=== PATIENT | female | born 1965 | race Caucasian/White ===

== ENCOUNTER 2019-09-03 14:34 | Emergency (ER) | payer OTHER ==
[~2019-09-03] VITALS: Ht 170.2 cm; Wt 111.1 kg
--- OUTSIDE RECORDS SUMMARY | 2019-09-03 14:36 | XMS REPORT | Summary of Care ---
Author Author [facility] Organization [facility] Address Unknown Phone Unavailable Care Team Providers Care Parts Identification Technician Name Role Phone Janine De La Cruz MD PCP Reason for Referral * Consult, Test & Treat (Routine) Referred By Contact Referred To Contact Status Reason Specialty Diagnoses / Procedures Janine De La Cruz MD [address] [address] [address] [place] [address] [id number] [place] [address] Pending Consult, Test, and Dermatology Diagnoses Treat Skin lesion of hand P rocedures MS OFFICE OUTPATIENT NEW 30 MINUTES * Radiology Services (Routine) Referred By Contact Referred To Contact Status Reason Specialty Diagnoses / Procedures Janine De La Cruz MD [address] [address] [facility] Mammo Imaging [address] [facility] [address] [place] [address] Pending Radiology Diagnoses Visit for screening mammogram P rocedures MAMMO SCREENING BILATERAL * Test (Routine) Referred By Contact Referred To Contact Status Reason Specialty Diagnoses / Procedures Janine De La Cruz MD [address] [address] [place] [facility] [address] [facility] 8th Floor, [address] [place] [address] Pending Gastroenterology Diagnoses Screen for colon cancer P rocedures OPEN ACCESS COLONOSCOPY MS COLONOSCOPY W/BIOPSY SINGLE/MULTIPLE Reason for Visit * Reason Comments Joint Swelling joint pain and low enegry Encounter Details Care Team Description Date Type [place] [address] [place] [address] [address] [place] [address] Joint Swelling (joint pain and low enegry) 02/07/2019 Office Visit [facility] Family Medicine [facility] [address], [facility] [address] [place] [address] Allergies Comments Active Allergy Reactions Severity Noted Date Penicillins 04/25/2012 documented as of this encounter (statuses as of 02/09/2019) Medications End Date Status Medication Sig Dispensed Refills Start Date Active atorvastatin (LIPITOR) 10 Take 1 Tab by 90 Tab 3 MG tabletIndications: mouth daily. 7 ASCVD (arteriosclerotic For cardiovascular disease), cholesterol Hyperlipidemia, unspecified hyperlipidemia type Active lisinopril (PRINIVIL, Take 1 Tab by 90 Tab 3 ZESTRIL) 5 MG mouth daily. 7 tabletIndications: HTN, For blood goal below 140/90 pressure Active Na Sulfate-K Sulfate-Mg Use as 2 Bottle 1 Sulf (SUPREP BOWEL PREP directed 9 KIT) 17.5-3.13-1.6 GM/177ML SOLNIndications: Screen for colon cancer Active hydrochlorothiazide Take 1 Cap by 30 Cap 0 (MICROZIDE) 12.5 MG mouth every 9 capsuleIndications: HTN, morning. For goal to be determined swelling and blood pressure 02/07/2019 Discontinued varenicline (CHANTIX Take 1 Tab by 60 Tab 0 CONTINUING MONTH ROB) 1 mouth two 5 MG tabletIndications: times daily. Smokes and motivated to Please quit, Tobacco use schedule disorder appointment for follow up and further refill 02/07/2019 Discontinued Na Sulfate-K Sulfate-Mg Use as 2 Bottle 1 Sulf (SUPREP BOWEL PREP) directed 7 SOLNIndications: Preventative health care, Screen for colon cancer 02/07/2019 Discontinued hydrochlorothiazide Take 1 Cap by 90 Cap 3 (MICROZIDE) 12.5 MG mouth every 7 capsule morning. For swelling and blood pressure documented as of this encounter (statuses as of 02/09/2019) Active Problems Problem Noted Date HTN, goal below 140/90 11/16/2016 Dyslipidemia 11/01/2016 Overview: 10/2016=3.4% (quit smoking) Elevated platelet count 11/01/2016 Leukocytosis 11/01/2016 Prediabetes 05/01/2015 Angina pectoris 04/25/2012 Tobacco use disorder 04/25/2012 Overview: 04/08: Counseled on tobacco cessation, not ready to quit at this time, agrees to think about a quit date Obesity (BMI 30-39.9) 04/25/2012 Overview: 04/08: Ant discussion with patient regarding the importance of weight loss. Recommend consult with nutrition and/or joining weight watchers or alternate dietary program. Recommend starting a formal exercise program with ultimate goal of 200 minutes of aerobic activity/week. Will recommend walking 15 minutes daily for minimum of 3 days/week to start and increase intensity and frequency as tolerated. Will continue to monitor progress. documented as of this encounter (statuses as of 02/09/2019) Immunizations Name Administration Dates Next Due Influenza Quad-PF 05/08/2015 Pneumococcal 05/08/2015 Polysaccharide documented as of this encounter Social History Date Tobacco Use Types Packs/Day Years Used Quit: 06/28/2016 Former Smoker 1 30 Smokeless Tobacco: Never Used Drinks/Week oz/Week Comments Alcohol Use 7-14 Standard drinks or equivalent 4.2 - 8.4 Yes Sex Assigned at Date Recorded Not on file Industry Job Start Date Occupation Not on file Not on file Not on file Travel End Travel History Travel Start No recent travel history available. documented as of this encounter Last Filed Vital Signs Reading Time Taken Comments Vital Sign 144/84 02/07/2019 1:11 PM CDT Blood Pressure 78 02/07/2019 1:11 PM CDT Pulse 36.2 C (97.2 F) 02/07/2019 1:06 PM CDT Temperature 16 02/07/2019 1:06 PM CDT Respiratory Rate - - Oxygen Saturation - - Inhaled Oxygen Concentration 114 kg (251 lb 6.4 oz) 02/07/2019 1:06 PM CDT Weight 170.2 cm (5' 7") 02/07/2019 1:06 PM CDT Height 39.37 02/07/2019 1:06 PM CDT Body Mass Index documented in this encounter Patient Instructions * Patient Instructions* Janine De La Cruz MD - 02/07/2019 1:10 PM CDT Please review the labs and/or tests ordered for you today. There may be a charge for tests not covered under your insurance plan and you may be responsible for the costs of the tests if they are not covered by your insurance. Please check w ith your insurance regarding coverage for tests Before getting them done. I have ordered fasting labs to be done. It may take up to 5 business days for e results to be ready and for me to review and release the results. I will release the results through [employer]. If you have not signed up for [employer] I will send a lab letter explaining your results. If something needs to be add ressed urgently you will receive a phone call. Take care, Janine De La Cruz MD, 1:38 PM 02/07/2019 You DO need to be fasting for this lab work. If fasting is required, do not eat anything for 10-12 hours. Water or black coffee is ok when fasting. No appointment is needed. You can just walk in. Two available locations: [facility] [address] Lab hours: /: 7:30 am - 4:15 pm, Wednesdays: 8:00 am - 4:15 pm [facility] [address] [place] [address] Lab hours: - 8:00 am - 5:30 pm Colonoscopy Instructions Please call [phone] to schedule your procedure and have this List with you. Day Date ArrivalTime Procedure Time Locations [facility] [address] [facility] 4th Floor [facility] [address] [facility] [address] [place] [address] [facility] [address] [facility] - 1st [place] [address] [facility] [address]th [place] [address] Important Phone Numbers Before calling, please see the Frequently Asked David montoya below. [facility] Insurance questions: [phone] [facility] Insurance questions: [phone], option 5 For prep information: [phone] To reschedule/cancel your procedure: [phone] After hour questions, including prep related: [phone] Elia Schneider COLONOSCOPY TO DO LIST HOLD Anticoagulants and Antiplatelet Medications To reduce risk of bleeding, 'blood thinning' medications need to be held for the upcoming procedure. Look for your prescription below and hold for the recommen ded number of days. Please check with your doctor BEFORE stopping any medications Note: You may continue to take baby aspirin (81mg) until the day of your procedu re Manage through you doctor or anticoagulation clinic Warfarin (Coumadin) Enoxaparin (Lovenox) STOP 7 days BEFORE the procedure Aspirin Aspirin/Dipyridamole (Aggrenox) Clopidogrel (Plavix) Pasugrel (Effient) Ticlopidine (Ticlid) Ticagrelor (Brilinta) STOP 3 days BEFORE the procedure Apixaban (Eliquis) Dabigatran (Pradaxa) Rivaroaxaban (Xarelto) STOP 2 days BEFORE the procedure Fondaparinux (Arixtra) Cilostazol (Pletal) 7 DAYS BEFORE THE PROCEDURE ? If your provider has instructed, obtain cardiac clearance from your cardiologi st and confirm that clearance has been faxed to our office ( ). ? If your provider has instructed, please stop use of medications that can thin your blood - see above ? Sign up for [facility] MyChart All results including biopsy and / or polyp(s) removed will be communicated via MyChart. ? superintendent drilling and production your bowel cleansing preparation from your pharmacy. ? Arrange transportation for the day of your procedure an escort is needed a s you will be sedated for the exam. THE DAY BEFORE THE PROCEDURE ? Please ignore the gnore the instructions provided with your bowel preparation ? Follow the steps in the Bowel Prep Instruction section below for your prescrib ed prep. ? You are restricted to ONLY CLEAR LIQUIDS. No solid foods or food with seeds/nu ts. No dairy and no liquids that are red, orange, or purple in color. This inclu thee breakfast. ? Examples of acceptable foods / liquids are plain broth, jello, popsicles, tea, clear juices and carbonated drinks. No vegetable soup. THE DAY OF THE PROCEDURE ? You cannot consume any food or drink (including water) ? You may brush your teeth and rinse your mouth. ? Take all medications as directed by your doctor with a small sip of water. ? Bring your identification card, insurance card, and method of payment. ? Leave all other valuables at home. ? You CANNOT drive yourself from the procedure. Use of bus, taxi or Uber without an escort is not allowed for safety reasons. ? Arrive for check-in at least 90 minutes before your procedure time. Allow panchito tional time for parking and navigation to the procedure location. BOWEL PREP INSTRUCTIONS Follow the instructions below for the bowel prep you were prescribed. Do NOT fo llow the instructions on the prep packaging. Please call [phone] if you best ve any questions about either prep. SUPREP THE DAY BEFORE YOUR PROCEDURE AT 6:00PM ? Pour ONE 6 ounce bottle of Suprep liquid into the 16 ounce mixing container in the kit ? Add cool drinking water to the 16 ounce line on the container with the mix. St ir. ? Drink all the liquid in the container ? You must drink TWO more 16 ounce containers (total of 32 ounces) of water over the next hour FOUR HOURS BEFORE YOU LEAVE YOUR HOME FOR THE PROCEDURE ? Pour ONE 6 ounce bottle of Suprep liquid into the 16 ounce mixing container in the kit ? Add cool drinking water to the 16 ounce line on the container with the mix. St ir. ? Drink all the liquid in the container ? You must drink TWO more 16 ounce containers (total of 32 ounces) of water over the next hour GOLYTELY THE DAY BEFORE YOUR PROCEDURE AT 6:00PM ? Add cold water to fill the gallon container. You may flavor the gallon with cr ystal light as long as it is not red/purple in color. ? Drink of the gallon (2 liters) over 2 hours. ? Drink the remaining half gallon (2 liters) over 90 minutes. FOUR HOURS BEFORE YOU LEAVE YOUR HOME FOR THE PROCEDURE ? Drink the remaining half gallon (2 liters) over 90 minutes. Colonoscopy Frequently Asked Questions What is a colonoscopy? A colonoscopy is a procedure that involves introducing a thin flexible tube with a camera to evaluate the colon for abnormalities. A Colonoscopy is considered the best option to screen for colon cancer and to re move colon polyps. A Colonoscopy is performed under sedation. How do I schedule a colonoscopy? Please call [phone] to schedule your procedure. Please be sure to check bef orehand with your designated catshovel driver (use of taxis, uber, lyft, etc are not permi tted) for possible dates. How much will the colonoscopy cost met? You will receive a call from the insurance department of [facility] AND [facility] ([facility]) in 10 to 14 business days AFTER you schedule your colonoscopy if your paymen t is above $100. What can I eat the day before the colonoscopy? The entire day before the procedure (including breakfast), you are restricted to clear liquids. This means nothing that has any solid residue. Liquids that are acceptable are water, plain/strained broth, jello, popsicles, and clear carbonat ed drinks. Avoid any liquids that are red/orange in color. Milk products are not allowed. P lease do NOT eat any vegetables, seeds, and nuts as these will cause poor visual ization of the colon. Preparation is a critically important part of the exam. If your bowel is not georgette quately cleaned out before the exam, your doctor will not be able to identify po lyps and may request a repeat examination. Tips for drinking the bowel preparation Refrigerating the mixed liquid bowel preparation may help you ingest easier. Do not force yourself to drink all the fluid at once. Pace yourself. Try hard/tart candies or lemon to help with the taste. What if I experience nausea or vomit the bowel preparation? Nausea is common, do not panic if this occurs. Stop drinking the solution for 45 to 60 minutes, and then resume. Pace yourself slower when drinking the bowel pr eparation. If vomiting continues for several hours please call your doctor. What should I wear for the day of the procedure? Please dress comfortably. You will be asked to change into a hospital gown and r emove all undergarments. What should I bring with me the day of the procedure? Please bring your identification card, insurance card, and method of payment. Pl ease do not bring any other valuables with you. [facility] (or [facility] facility where the procedure is performed) will NOT be responsible for your v aluable items. Can I take my medications the day of the procedure? You should take all your medications (except those listed as specified in the in structions) with small sips of water. Please refrain from drinking excessive flu id while taking your medications as this will place you at risk for anesthesia c omplications. How long will the process take? A typical procedure usually takes 30 to 45 minutes. However, there are many aspe cts to ensuring your health and safety. Time is needed for registration, intake assessment, changing, the procedure, and recovery. Please plan to be at the [facility] for at least 3-4 hours. What happens if a polyp is found in the colon? During the course of the colonoscopy, polyp(s) may be found. Polyps are abnormal growths of tissue, which vary in size. Although most polyps are benign (noncanc erous), a small percentage contain an area of cancer in them or may develop into cancer. They are usually removed during the procedure. Pathology results will be sent via [facility] [employer]. When will I receive results? You will receive a copy of the procedure report on the same day in your discharg e package. If biopsies were taken, they will be [facility] via [facility] 7 business days after your procedure. What symptoms might occur after the colonoscopy? Most patients do not experience any symptoms. Some may experience excessive gas, abdominal pain/cramping, and/or slight rectal bleeding after the procedure. The se symptoms usually resolve within a day with no need to be alarmed. If you expe rience excessive bleeding, fever, or severe symptoms please call the gastroenter ology office or report to the nearest emergency room for evaluation. What can I eat after the procedure? We suggest that the first meal be a light meal as you may have residual effects of anesthesia. However, there are no specific dietary exclusions unless you are instructed by your provider. What can I do after the procedure? Most procedures are done using anesthesia. You will not be allowed to drive afte r the procedure. It is not advised to make any important decisions the day of yo ur procedure. Please make sure you have someone to drive you home after the proc edure. The use of taxis, UBER, and Lyft are not permitted by our policies. Self- arranged medical transportation is acceptable. We recommend you plan on taking it easy for the remainder of the day. There are no restrictions the following day, including driving documented in this encounter Progress Notes * Janine De La Cruz MD - 02/07/2019 1:10 PM CDT Assessment/Plan 1. HTN, goal to be determined Restart HCTZ 12.5 mg qd pending labs - COMPREHENSIVE METABOLIC PANEL - hydrochlorothiazide (MICROZIDE) 12.5 MG capsule; Take 1 Cap by mouth every mor lalit. For swelling and blood pressure Dispense: 30 Cap; Refill: 0 2. Dyslipidemia curr off statin - LIPID PANEL 3. Elevated hemoglobin A1c - HEMOGLOBIN A1C - COMPREHENSIVE METABOLIC PANEL 4. Other fatigue - TSH REFLEX TO FREE T4 - CBC W/O DIFF W PLT - IRON, TIBC AND FERRITIN PANEL - VITAMIN B12 5. Skin lesion of hand - AMB REF TO [facility]ERMATOLOGY [facility] 6. Arthralgia of multiple sites - ANACHOICE(TM) SCREEN W REFLEX TO TITER, IFA - SEDIMENTATION RATE MODIFIED WESTERGREN - C-REACTIVE PROTEIN - CCP AB (IGG/IGA) - RHEUMATOID FACTOR 7. Low energy - VITAMIN B12 8. Tremor of left hand 9. Visit for screening mammogram - MAMMO SCREENING BILATERAL; Future 10. Screen for colon cancer - OPEN ACCESS COLONOSCOPY; Future - Na Sulfate-K Sulfate-Mg Sulf (SUPREP BOWEL PREP KIT) 17.5-3.13-1.6 GM/177ML SO LN; Use as directed Dispense: 2 Bottle; Refill: 1 Patient verbalized understanding. Discussed plan with patient, printed on the After Visit Summary, and given to her. Chief Complaint Patient presents with Joint Swelling joint pain and low enegry HPI Last visit with me 10/2016 Pt has been busy with work but also has had diff getting f/u appt here C/o being more tired, sleeping more Goes to bed at 8:30-9 PM and wakes up 6 AM Snores Wt gain 10 lbs in past year despite lifestyle changes Vitals 04/12/2014 04/26/2015 05/08/2015 10/29/2016 WEIGHT 237 243 253 HEIGHT 5' 7" 5' 7" 5' 7" 5' 7" BODY MASS INDEX 37.11 38.05 39.63 Vitals 11/12/2016 02/07/2019 WEIGHT 248 251.4 HEIGHT 5' 7" 5' 7" BODY MASS INDEX 38.84 39.37 Walking, more active Steps 9,000-10,000 steps/day x 1.5 mos Diet: portion control Uses calorie counter katelynn Down to 0612-9712 cals/day from 2300 cals/day Max 3000 cals/day before Cut back on fried and high carb foods Tried keto diet for several days for but had low energy and diff focus on work s o has gone to eating some meat but more complex carbs Just joined [employer] recently Plans to start swimming C/o joint pain with fatigue Hands, elbows, knees Achy pain off and on Some stiffness Better with movement, exercise No rash No urinary concerns No memory difficulties HTN HLD Off meds x1 yr ROS As per HPI Past Medical History/Past Social History/Family History I have reviewed the PMH, SH, FHX, ROS, MEDS, ALLERGIES and updated the computeri zed patient record appropriately. BP 144/84 | Pulse 78 | Temp 97.2 F (36.2 C) (Oral) | Resp 16 | Ht 5' 7" (1.702 m) | Wt 251 lb 6.4 oz (114 kg) | LMP 03/12/2009 | BMI 39.37 kg/m Gen: WD, WN. No acute distress, obese, well appearing Eyes: Conjunctivae clear. Anicteric. Throat: MMM Neck: Supple Lungs: Non labored breathing. CTAB. No w/r/r CVS: Regular rate and rhythm. Heart sounds wnl. No noted m/r/g Abd: soft, NT, ND, bowel sounds present Extrs: WWP. Trace b/l non pitting pedal edema No clubbing or cyanosis. Nl cap refill time Pulses: periph pulses 2+/= Skin: warm, dry, no rashes or bruises on cursory exam MSK: Normal gait Neuro: alert, oriented x3. Resting tremor, L hand noted. Psych: Normal affect, normal mood, normal judgement Janine De La Cruz MD [facility] documented in this encounter Plan of Treatment Care Team Description Date Type Specialty Janine De La Cruz MD [address] [place] [address] 02/21/2019 Office Visit Family Medicine Order Schedule Name Type Priority Associated Diagnoses Ordered: 02/07/2019 TSH REFLEX TO FREE T4 Lab Routine Other fatigue Ordered: 02/07/2019 CBC W/O DIFF W PLT Lab Routine Other fatigue Ordered: 02/07/2019 IRON, TIBC AND FERRITIN Lab Routine Other fatigue PANEL Ordered: 02/07/2019 HEMOGLOBIN A1C Lab Routine Elevated hemoglobin A1c Ordered: 02/07/2019 COMPREHENSIVE METABOLIC Lab Routine Elevated hemoglobin A1c PANEL HTN, goal to be determined Ordered: 02/07/2019 LIPID PANEL Lab Routine Dyslipidemia 1 Occurrences starting 02/07/2019 until 08/10/2019 OPEN ACCESS COLONOSCOPY Procedures Routine Screen for colon cancer Expected: 02/07/2019, Expires: 08/10/2020 MAMMO SCREENING BILATERAL Imaging Routine Visit for screening mammogram Ordered: 02/07/2019 ANACHOICE(TM) SCREEN W Lab Routine Arthralgia of multiple REFLEX TO TITER, IFA sites Ordered: 02/07/2019 VITAMIN B12 Lab Routine Other fatigue Low energy Ordered: 02/07/2019 SEDIMENTATION RATE Lab Routine Arthralgia of multiple MODIFIED WESTERGREN sites Ordered: 02/07/2019 C-REACTIVE PROTEIN Lab Routine Arthralgia of multiple sites Ordered: 02/07/2019 CCP AB (IGG/IGA) Lab Routine Arthralgia of multiple sites Ordered: 02/07/2019 RHEUMATOID FACTOR Lab Routine Arthralgia of multiple sites Order Schedule Name Type Priority Associated Diagnoses Ordered: 02/07/2019 AMB REF TO DERMATOLOGY Outpatient Routine Skin lesion of hand [facility] Due Date Last Done Comments COLON CANCER SCREENIN1965 COLONOSCOPY TETANUS SHOT (ADULT) 1980 BMI FOLLOW UP PLAN 1983 HEPATITIS C SCREENING 1983 HIV SCREENING 1983 CERVICAL CANCER SCREENING 1986 3 YEAR FOLLOW UP MAMMOGRAM ANNUAL 11/12/2017 11/12/2016, 11/12/2016 FLU VACCINE > 6 MONTHS 01/26/2019 05/08/2015 documented as of this encounter Results Not on filedocumented in this encounter Visit Diagnoses Diagnosis HTN, goal to be determined - Primary Unspecified essential hypertension Dyslipidemia Other and unspecified hyperlipidemia Elevated hemoglobin A1c Other abnormal blood chemistry Other fatigue Skin lesion of hand Unspecified disorder of skin and subcutaneous tissue Arthralgia of multiple sites Pain in joint, multiple sites Low energy Tremor of left hand Visit for screening mammogram Other screening mammogram Screen for colon cancer Special screening for malignant neoplasms, colon documented in this encounter Insurance Type Payer Benefit Subscriber ID Effective Phone Address Plan / Dates Group POS [employer] OPEN xxxxxxxxxx 2014-P [id number] HMO/POS/EP [place] [employer] [address] documented as of this encounter
--- OUTSIDE RECORDS SUMMARY | 2019-09-03 14:36 | XMS REPORT | Summary of Care ---
Author Author [facility] Organization [facility] Address Unknown Phone Unavailable Care Team Providers Care Procurement Specialist Name Role Phone Janine De La Cruz MD PCP Reason for Visit * Reason Comments Skin Check 2nd finger on right hand * Consult, Test & Treat (Routine) Referred By Contact Referred To Contact Status Reason Specialty Diagnoses / Procedures Janine De La Cruz MD [email or web address] [facility] [address] [place] [address] Dermatology [address] [facility] [address] [place] [address] Authorization Consult, Test, and Dermatology Diagnoses Not Needed Treat Skin lesion of hand Dr.Elizabeth De La Cruz L98.9 (ICD-10-CM) - Skin lesion of hand [address] [place] [address] P rocedures [place] OFFICE OUTPATIENT NEW 30 MINUTES Encounter Details Care Team Description Date Type Department Michael Huizar MD [address] [facility] 6th [address], [address] [place], [place] [id number] Skin Check (2nd finger on right hand ) 02/15/2019 Office Visit [facility] Dermatology [address] [facility] [address] [place] [address] Allergies Comments Active Allergy Reactions Severity Noted Date Penicillins 04/25/2012 documented as of this encounter (statuses as of 02/15/2019) Medications End Date Status Medication Sig Dispensed Refills Start Date Active hydrochlorothiazide Take 1 Cap by 30 Cap 0 (MICROZIDE) 12.5 MG mouth every 9 capsuleIndications: HTN, morning. For goal to be determined swelling and blood pressure 02/15/2019 Discontinued atorvastatin (LIPITOR) 10 Take 1 Tab by 90 Tab 3 MG tabletIndications: mouth daily. 7 ASCVD (arteriosclerotic For cardiovascular disease), cholesterol Hyperlipidemia, unspecified hyperlipidemia type 02/15/2019 Discontinued lisinopril (PRINIVIL, Take 1 Tab by 90 Tab 3 ZESTRIL) 5 MG mouth daily. 7 tabletIndications: HTN, For blood goal below 140/90 pressure 02/15/2019 Discontinued Na Sulfate-K Sulfate-Mg Use as 2 Bottle 1 Sulf (SUPREP BOWEL PREP directed 9 KIT) 17.5-3.13-1.6 GM/177ML SOLNIndications: Screen for colon cancer documented as of this encounter (statuses as of 02/15/2019) Active Problems Problem Noted Date Neoplasm of uncertain behavior of skin 02/15/2019 HTN, goal below 140/90 11/16/2016 Dyslipidemia 11/01/2016 Overview: ASCVD 10/2016=3.4% (quit smoking) 01/2019=3.9% Thrombocytosis 11/01/2016 Leukocytosis 11/01/2016 Prediabetes 05/01/2015 Angina pectoris 04/25/2012 Obesity (BMI 30-39.9) 04/25/2012 Overview: 04/08: Ant [...] as of this encounter (statuses as of 02/15/2019) Resolved Problems Problem Noted Date Resolved Date Tobacco use disorder 04/25/2012 02/14/2019 Overview: 04/08: Counseled on tobacco cessation, not ready to quit at this time, agrees to think about a quit date documented as of this encounter (statuses as of 02/15/2019) Immunizations Name Administration Dates Next Due Influenza [...] Signs Reading Time Taken Comments Vital Sign 155/88 02/15/2019 12:53 PM CDT Blood Pressure 89 02/15/2019 12:53 PM CDT Pulse - - Temperature - - Respiratory Rate - - Oxygen Saturation - - Inhaled Oxygen Concentration 112 kg (247 lb) 02/15/2019 12:53 PM CDT Weight 170.2 cm (5' 7") 02/15/2019 12:53 PM CDT Height 38.69 02/15/2019 12:53 PM CDT Body Mass Index documented in this encounter Progress Notes * Michael Huizar MD - 02/15/2019 1:00 PM CDT 53 Y/) WF in NAD. Here for focused visit. 2nd finger right hand. Evolved over 2 years. PE: X6 maculopapules; red-brown; non-blanching. Imp: ? Rx: Bx by shave + thee (SEDEA, incl scar). Ret prn. JW documented in this encounter Plan of Treatment Care Team Description Date Type Specialty 02/15/2019 Ancillary Radiology Procedure Janine De La Cruz MD [address] [address] 02/21/2019 Office Visit Family Medicine Order Schedule Name Type Priority Associated Diagnoses Ordered: 02/15/2019 HI TANGENTIAL BIOPSY SKIN HI Charge Routine Neoplasm of uncertain SINGLE LESION behavior of skin Health Maintenance Due Date Last Done Comments COLON CANCER SCREENIN1965 COLONOSCOPY TETANUS SHOT (ADULT) 1980 BMI FOLLOW UP PLAN 1983 HEPATITIS C SCREENING 1983 HIV SCREENING 1983 CERVICAL CANCER SCREENING 1986 3 YEAR FOLLOW UP MAMMOGRAM ANNUAL 11/12/2017 11/12/2016, 11/12/2016 FLU VACCINE > 6 MONTHS 01/26/2019 05/08/2015 documented as of this encounter Results Not on filedocumented in this encounter Visit Diagnoses Diagnosis Neoplasm of uncertain behavior of skin - Primary documented in this encounter Insurance Type Payer Benefit Subscriber ID Effective Phone Address Plan / Dates Group POS AETNA OPEN xxxxxxxxxx 2014-P [address] ACC[address] resent [id number] HMO/POS/EP [place] - [place] [employer] [address] documented as of this encounter
--- OUTSIDE RECORDS SUMMARY | 2019-09-03 14:37 | XMS REPORT ---
Author Author [facility] Address Unknown Phone Unavailable Care Team Providers Care Otr Truck Driver Name Role Phone Marissa KIRAN Unavailable Unavailable Problems This patient has no known problems. Allergies, Adverse Reactions, Alerts This patient has no known allergies or adverse reactions. Medications This patient has no known medications. Results Test Description Test Time Test Comments Text Results Atomic Results Result Comments TISSUE EXAM 2019-03-21 15:37:00 Surgical Pathology Report Case: [id number] Authorizing Provider: Kyaw Kiran MD Collected: 03/17/2019 [address] Location: [facility] ENDOSCOPY Received: 03/17/2019 1500 SERVICES Pathologist: Vera Gamez MD Specimen: Polyp, Colon - Rectum, TAKEN BY RIANNAJustyna [facility] RECTAL POLYP, BIOPSY: - CONSISTENT WITH HYPERPLASTIC POLYPCC/pl Signing Pathologist Direct Phone Line: [phone] signed by Vera Gamez MD on 03/21/2019 at 3:37 [id number] polyp The specimen is received in a formalin-filled container labeled with the patient's name, date of and medical record number and consists of a singular portion of cheung-red tissue 0.3 x 0.2 x 0.2 cm submitted in toto in one cassette. CB/ew Sections show three pieces of colonic mucosa with features of hyperplastic polyp. No dysplasia is seen.
--- OUTSIDE RECORDS SUMMARY | 2019-09-03 14:37 | XMS REPORT | Summary of Care ---
Author Author [facility] Organization [facility] Address Unknown Phone Unavailable Care Team Providers Care Technical Service Specialist Name Role Phone Janine De La Cruz MD PCP [address] Reason for Referral * Consult, Test & Treat (Routine) Referred By Contact Referred To Contact Status Reason Specialty Diagnoses / Procedures Janine De La Cruz MD [facility] [employer] [address] [address] [place] [facility] [address] [facility] 7th Floor, [address] [place] [address] Pending Consult, Test, and Hematology and Diagnoses Treat Oncology Leukocytosis, unspecified type Thrombocytosis multicultural internship referral by Dr. Janine De La Cruz, D72.829 (ICD-10-CM) - Leukocytosis, unspecified type D47.3 (ICD-10-CM) - Thrombocytosis [address] P rocedures [place] OFFICE OUTPATIENT NEW 45 MINUTES Reason for Visit * Reason Comments Results Encounter Details Care Team Description Date Type Department Janine De La Cruz MD [facility] [employer] [address] [address] Results 02/21/2019 Office Visit [facility] Family Medicine [facility] [address] [address] Allergies Comments Active Allergy Reactions Severity Noted Date Penicillins 04/25/2012 documented as of this encounter (statuses as of 02/21/2019) Medications End Date Status Medication Sig Dispensed Refills Start Date Active hydrochlorothiazide Take 1 Tab by 90 Tab 1 (HYDRODIURIL) 25 MG mouth daily. 9 tabletIndications: HTN, For blood goal below 140/90 pressure Active Dulaglutide (TRULICITY) Inject 0.5 mL 4 Pen 1 0.75 MG/0.5ML into the skin 9 SOPNIndications: Abnormal every 7 days. weight gain, Prediabetes, Obesity (BMI 30-39.9) 02/21/2019 Discontinued hydrochlorothiazide Take 1 Cap by 30 Cap 0 (MICROZIDE) 12.5 MG mouth every 9 capsuleIndications: HTN, morning. For goal to be determined swelling and blood pressure documented as of this encounter (statuses as of 02/21/2019) Active Problems Problem Noted Date Neoplasm of [...] as of this encounter (statuses as of 02/21/2019) Resolved Problems Problem Noted Date Resolved Date Tobacco use disorder 04/25/2012 02/14/2019 Overview: 04/08: Counseled on tobacco cessation, not ready to quit at this time, agrees to think about a quit date documented as of this encounter (statuses as of 02/21/2019) Immunizations Name Administration Dates Next Due Influenza [...] Signs Reading Time Taken Comments Vital Sign 147/88 02/21/2019 3:31 PM CDT Pt declined re-take Blood Pressure 83 02/21/2019 3:31 PM CDT Pulse 36.8 C (98.3 F) 02/21/2019 3:31 PM CDT Temperature 16 02/21/2019 3:31 PM CDT Respiratory Rate - - Oxygen Saturation - - Inhaled Oxygen Concentration 111.1 kg (245 lb) 02/21/2019 3:31 PM CDT Weight 170.2 cm (5' 7") 02/21/2019 3:31 PM CDT Height 38.37 02/21/2019 3:31 PM CDT Body Mass Index documented in this encounter Patient Instructions * Patient Instructions* Janine De La Cruz MD - 02/21/2019 3:30 PM CDT For blood pressure (BP) Try increased dose to 25 mg daily Goal BP less than 140/90 BP Readings from Last 3 Encounters: 02/21/19 147/88 02/15/19 155/88 02/07/19 144/84 For weight, try Trulicity 0.75 mg once A WEEK See you back in 3 weeks documented in this encounter Progress Notes * Janine De La Cruz MD - 02/21/2019 3:30 PM CDT Reason for visit: f/u on Hypertension and Hyperlipidemia - Chief Complaint Patient presents with Results I have reviewed the patient assessment CCV questionnaire completed via [facility] o r transcribed from the written form. YES 02/14/19 Lab results reviewed with pt Notable for elev WBC, PLTs, lipids FHx GM with unspec type of "blood cancer" Blood pressure HCTZ 12.5 mg daily Tolerating well The 10-year ASCVD risk score (Yanethbettina ARORA Jr., et al., 2013) is: 4% Values used to calculate the score: Age: 53 years Sex: Female Is Non- : No Diabetic: No Tobacco smoker: No Systolic Blood Pressure: 147 mmHg Is BP treated: Yes HDL Cholesterol: 41 mg/dL Total Cholesterol: 203 mg/dL Wt gain noted Pt motivated to lose wt Has noticed her joint pains improved when she weighed less Eating less carbs (bread, crackers, rice) More lean meats and low fat mozzarella Diet Cokes 2-3 day Frappucinos 2 times/wk Former smoker Wt Readings from Last 3 Encounters: 02/21/19 245 lb (111.1 kg) 02/15/19 247 lb (112 kg) 02/07/19 251 lb 6.4 oz (114 kg) HYPERTENSION BP Readings from Last 3 Encounters: 02/21/19 147/88 02/15/19 155/02/07/19 144 Patient's goal met?===== BP <140/90 NO JNC VII - goal <140/90 - <130/80 for patients with diabetes or chronic kidney disease JNC VII - stage 1 (140-159/90-99) thiazide diuretic for most,or ACEi,ARB, BB, CCB stage 2 (>160/100) 2-drug combination - compelling conditions indicate specific drugs HYPERLIPIDEMIA Family History Problem Relation Name Age of Onset Colon Cancer Father 73 High Blood Pressure Mother 71 Hypertension Mother 71 Heart Problems Mother 71 Cardiovascular Risk Factors #1 - Family History of early CAD (see ABOVE) No #2 - Smoking No Social History Tobacco Use Smoking Status Former Smoker Packs/day: 1.00 Years: 30.00 Pack years: 30.00 Last attempt to quit: 06/28/2016 Years since quittin.6 Smokeless Tobacco Never Used #3 - Hypertension (>140/90 or treated) Yes BP Readings from Last 3 Encounters: 02/21/19 147/88 02/15/19 155/88 02/07/19 14484 #4 - Age (Men>45, Women>55) No 53 y.o. years old today #5 - Low HDL No Lab Results Component Value Date HDL 41 02/13/2019 1 # of Risk Factors Most recent lipid panel- Lab Results Component Value Date CHOL 203 (H) 02/13/2019 HDL 41 02/13/2019 LDLCALC 126 (H) 02/13/2019 TRIG 181 (H) 02/13/2019 CHOLHDL 5.0 04/29/2015 Patient's goal met?===== LDL < 160 mg/dl (< 2 risk factors are present) - YES TG <150 - NO HDL >40 - YES ATP III - Total cholesterol <200 Desirable, 200-239 Borderline high, > 240 High LDL <100 Optimal, 100-129 Near/above optimal, 130-159 Borderline 160-189 High, >190 Very high HDL <40 Low, >60 High TG <150 Normal, 150-199 Borderline, 200-499 High, >500 Very High ATP III - LDL goal 30 mg/dl lower than cut-off for which drug treatment indica estephania Adherence HTN meds taken regularly YES Lipids meds taken regularly n/a Med side effects -Lab Results Component Value Date ALT 20 02/13/2019 ATP III - Drug treatment indicated: If LDL >130 with CHD, CHD equivalent (10 year risk >20%), or 2+ risk factors and 10 year risk 10-120% If LDL >160 with 2+ risk factors and 10-year risk <10% If LDL >190 with 0-1 risk factor If TG 200-499 after LDL goal reached or if TG >500, add nicotinic acid or fibrate Chemoprophylaxis ASA - NO Target Organ Damage lab Lab Results Component Value Date CREATININE 0.78 02/13/2019 Other ASCVD risk factors/Labs Lab Results Component Value Date GLUCOSE 60 (L) 02/13/2019 Lab Results Component Value Date HGBA1C 5.3 02/13/2019 Immunizations - Immunization History Administered Date(s) Administered Influenza Quad-PF 05/08/2015 Pneumococcal Polysaccharide 05/08/2015 Reviewed vital signs, allergies, medications, past and family/social history, pr oblem list. Physical Exam BP 147/88 (BP Location: left arm, Patient Position: Sitting, Cuff Size: large) | Pulse 83 | Temp 98.3 F (36.8 C) (Oral) | Resp 16 | Ht 5' 7" (1.702 m) | Wt 245 lb (111.1 kg) | LMP 03/12/2009 | BMI 38.37 kg/m Body mass index is 38.37 kg/m. - General : 53 y.o. female well developed, well nourished and in no acute distre ss HEENT: normocephalic, atraumatic. PER, mucus membranes moist Neck: supple Lungs: Non labored breathing Heart: Reg rate Musculoskeletal: symmetrical with no deformity, with normal posture Pulses: 2+ and symmetric Ext: no pedal edema, no clubbing or cyanosis Neuro: Grossly normal, non-focal Assessment / Plan HYPERTENSION Controlled? - No HYPERLIPIDEMIA Controlled? - NO 1. HTN, goal below 140/90 Increase dose to 25 mg qd Keep HBP log - hydrochlorothiazide (HYDRODIURIL) 25 MG tablet; Take 1 Tab by mouth daily. For blood pressure Dispense: 90 Tab; Refill: 1 2. Leukocytosis, unspecified type 3. Thrombocytosis - AMB REFERRAL TO [facility]ATOLOGY [facility] 4. Abnormal weight gain 5. Prediabetes 6. Obesity (BMI 30-39.9) D/w pt r/b/a of GLP-1 agonist for insulin resistance/pre-DM and weight - Dulaglutide (TRULICITY) 0.75 MG/0.5ML SOPN; Inject 0.5 mL into the skin every 7 days. Dispense: 4 Pen; Refill: 1 7. Health education/counseling - PT INSTR GIVEN - BMI>24 Discussed self-monitoring YES Gave Pt Self-Management Educational Materials YES Goal documented on AVS and Overview note YES RTC 4 wks for med and BP f/u or sooner prn Janine De La Cruz MD [facility] Family Medicine documented in this encounter Plan of Treatment Care Team Description Date Type Specialty Janine De La Cruz MD [address] [place] [address] [phone] 03/14/2019 Office Visit Family Medicine Bill Sood MD [address] [place] [address] 05/17/2019 Office Visit Hematology and Oncology Order Schedule Name Type Priority Associated Diagnoses Ordered: 02/21/2019 PT INSTR GIVEN - BMI>24 Nursing Routine Health education/counseling Order Schedule Name Type Priority Associated Diagnoses Ordered: 02/21/2019 AMB REFERRAL TO Outpatient Routine Leukocytosis, unspecified HEMATOLOGY ONCOLOGY Referral type [facility] Thrombocytosis Health Maintenance Due Date Last Done Comments COLON CANCER SCREENIN1965 COLONOSCOPY TETANUS SHOT (ADULT) 1980 HEPATITIS C SCREENING 1983 HIV SCREENING 1983 CERVICAL CANCER SCREENING 1986 3 YEAR FOLLOW UP FLU VACCINE > 6 MONTHS 03/21/2019 05/08/2015 Postponed from 01/26/2019 (Other) MAMMOGRAM ANNUAL 02/16/2020 02/15/2019, 02/15/2019, 11/12/2016, Additional history exists BMI FOLLOW UP PLAN 02/22/2020 02/21/2019 documented as of this encounter Results Not on filedocumented in this encounter Visit Diagnoses Diagnosis HTN, goal below 140/90 - Primary Unspecified essential hypertension Leukocytosis, unspecified type Thrombocytosis Essential thrombocythemia Abnormal weight gain Prediabetes Other abnormal glucose Obesity (BMI 30-39.9) Obesity, unspecified Health education/counseling Counseling NOS documented in this encounter Insurance Type Payer Benefit Subscriber ID Effective Phone Address Plan / Dates Group POS AETNA OPEN xxxxxxxxxx 2014-P [address] resent [id number] HMO/POS/EP [place], [place] - [place] [employer] [address] documented as of this encounter
--- OUTSIDE RECORDS SUMMARY | 2019-09-03 14:37 | XMS REPORT | Summary of Care ---
Author Author [facility] Organization [facility] Address Unknown Phone Unavailable Care Team Providers Care Medical Receptionist Biller Name Role Phone Janine De La Cruz MD PCP Sophia Wolfgang 51 Miranda Echevarria MA 51 Unavailable Reason for Referral * Consult, Test & Treat (Routine) Referred By Contact Referred To Contact Status Reason Specialty Diagnoses / Procedures Pati Toro MD [address] [facility] [address] [place] [address] Yumiko Adams, RD [address] [facility] [address] [place] [address] Pending Consult, Test, and Gastroenterology Diagnoses Treat Hypoglycemia P rocedures RI MED NUTR THER, 1ST, INDIV, EA 15 MIN Reason for Visit * Reason Comments Initial Visit * Consult, Test & Treat (Urgent) Referred By Contact Referred To Contact Status Reason Specialty Diagnoses / Procedures Janine De La Cruz MD [address] [facility] [address] [place] [address] [place] [facility] [address] [facility] 8th Floor; [address] [place] [address] Authorization Consult, Test, and Endocrinology Diagnoses Not Needed Treat Hypoglycemia Hypoglycemia Please advise on an appointment for the referral indicated below. Referral Appointment Request: Referring Provider and Department: Dr. De La Cruz Reason For Visit (diagnosis): Hypoglycemia Referral Priority (Routine/Urgent): URGENT Provider/Departmen t Patient is being Referred To: ENDO Is Patient New or Established with the Referred to Department: NEW If Request is for a Sooner Appointment; what Date & Time is preferred (if applicable): Patient has been placed on the schedule & added to waiting list/ Sergio camarena [place] OFFICE OUTPATIENT NEW 30 MINUTES Encounter Details Care Team Description Date Type Department Pati Toro MD [address] [facility] [address] [place], [place] [id number] Initial Visit 08/24/2019 Office Visit [facility] Endocrinology [address] [facility] 8th Floor; [address] [place] [address] Allergies Comments Active Allergy Reactions Severity Noted Date Penicillins 04/25/2012 documented as of this encounter (statuses as of 08/24/2019) Medications End Date Status Medication Sig Dispensed Refills Start Date Active hydrochlorothiazide Take 1 Tab by 90 Tab 1 (HYDRODIURIL) 25 MG mouth daily. 9 tabletIndications: HTN, For blood goal below 140/90 pressure 08/28/2019 Active Beclomethasone Diprop HFA Inhale 1 Puff 1 Inhaler 0 (QVAR REDIHALER) 40 by nose two 0 MCG/ACT AERBIndications: times daily Acute bronchitis, for 10 days. unspecified organism For cough, wheezing or shortness of breath Active azithromycin (ZITHROMAX) Take as 6 Tab 0 250 MG tabletIndications: directed on 0 Acute bronchitis, package unspecified organism labeling. Two pills by mouth for the first day and then 1 pill daily until done. 08/28/2019 Active benzonatate (TESSALON Take 1 Cap by 30 Cap 0 PERLES) 100 mg mouth 3 times 0 capsuleIndications: Acute daily as bronchitis, unspecified needed for organism Cough for up to 10 days. 08/24/2019 Discontinued (*Therapy completed) lisinopril (PRINIVIL, Take 1 Tab by 90 Tab 1 ZESTRIL) 2.5 MG mouth daily. 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 HTN, goal below 140/90 11/16/2016 Dyslipidemia 11/01/2016 Overview: ASCVD 10/2016=3.4% (quit smoking) 01/2019=3.9% Thrombocytosis (HCCode) 11/01/2016 Leukocytosis 11/01/2016 Prediabetes 05/01/2015 Angina pectoris (HCCode) 04/25/2012 Obesity (BMI 30-39.9) 04/25/2012 Overview: 04/08: [...] as of this encounter (statuses as of 08/24/2019) Resolved Problems Problem Noted Date Resolved Date Tobacco use disorder 04/25/2012 02/14/2019 Overview: 04/08: Counseled on tobacco cessation, not ready to quit at this time, agrees to think about a quit date documented as of this encounter (statuses as of 08/24/2019) Immunizations Name Administration Dates Next Due Influenza Quad-PF 05/08/2015 Pneumococcal 05/08/2015 Polysaccharide documented as of this encounter Social History Date Tobacco Use Types Packs/Day Years Used Quit: 06/28/2016 Former Smoker 1 30 Smokeless Tobacco: Never Used Drinks/Week oz/Week Comments Alcohol Use 7-14 Standard drinks or equivalent 7.0 - 14.0 Yes Sex Assigned at Date Recorded Not on file Industry Job Start Date Occupation Not on file Not on file Not on file Travel End Travel History Travel Start No recent travel history available. documented as of this encounter Last Filed Vital Signs Reading Time Taken Comments Vital Sign 122/78 08/24/2019 8:12 AM ELECTRONIC GLUER Blood Pressure 91 08/24/2019 8:12 AM ELECTRONIC GLUER Pulse - - Temperature 16 08/24/2019 8:12 AM ELECTRONIC GLUER Respiratory Rate - - Oxygen Saturation - - Inhaled Oxygen Concentration 112 kg (247 lb) 08/24/2019 8:12 AM ELECTRONIC GLUER Weight 170.2 cm (5' 7") 08/24/2019 8:12 AM ELECTRONIC GLUER Height 38.69 08/24/2019 8:12 AM ELECTRONIC GLUER Body Mass Index documented in this encounter Progress Notes * Pati Toro MD - 08/24/2019 8:00 AM ELECTRONIC GLUER Teaching Physician Addendum: I have seen and examined Ms Samuel. with Dr. Gamez I agree fully with the history, findings, assessment, and plan as documented by the resident. I have reviewed the labs., I have reviewed vital signs/PE New patient with Hypoglycemia Fulfilled Whipple's triad here in clinic- symptoms of hypoglycemia- BS 52 when c hecked with meter. Labs drawn and then 4 oz orange juice given, symptoms resolve d. Had only had black coffee in morning. BS readings in 30-40s with no symptoms in PCP office. At home, symptoms consiste nt with low BS- fasting or during the day post prandial., almost 2-3 times a wee k (never checked an actual BS) x Apr 2019 Diagnosed with reactive hypoglycemia in past many years ago- does have pre DM/ i nsulin resistance but hypos only 1-2 times in 6 months. Never modified her diet and does eat pretty carb heavy/simple sugar loaded meals and snacks. In Apr Ozem pic was stopped, had been on it since Feb to help loose weight. Discussed with her at length that the hypoglycemic panel ( insulin, pro insulin, c-peptide, Beta hydroxy butyrate and JOYCE screen) drawn today when her BS was 50s might be helpful. Meanwhile alter her diet, stop simple/heavy carb meals. Will send to see dietici an. Consider to add acarbose. Hypo precautions discussed. Pati Toro MD Endocrinology. TRONIC GLUER * Lela Gamez MD - 08/24/2019 8:00 AM ELECTRONIC GLUER Endocrinology Consult Note CC: Hypoglycemia Ms Samuel is a 54 years old female with past medical history of HTN referred t o us for hypoglycemia. Was diagnosed with hypoglycemia in her 20's. She went to a physicians office and was told that she had hypogylcemia after some testing and was told to eat less carbs and more fats. She rarely has these symptoms since her 20's and she pooja by eating frequently, but recently her symptoms have intensified. Within the past month these symptoms have gotten worse. She gets fuzzy, can't th ink, vision gets blurry, shaking, sweaty, clammy, and in general not feeling goo d. When she lays downand eats, her symptoms generally gets better. This has happ ened very frequently in the past month where she gets it several times a week. S he tries to not let herself get to that point so she eats frequently. If she reilly sn't eat, every 3 hours she will start feeling these symptoms. She was placed on Trulicity by her PCP last fall, she was told that her sugars were low at 40's a nd stopped Trulicity in May. She continues to have these symptoms despite s topping Trulicity. When she got her blood test checked in 07/2019, it was 30's. S he does not have blood sugar machine at home so she does not monitor her sugars at home. ROS Negative except for HPI PMH -HTN -Hypoglycemia Surgical History -Laparoscopic procedure -Cholecystectomy FH No history of DM or hypoglycemia SH -Denies any smoking, quit 6 months ago -Drink about 5 drinks in a week Current Outpatient Medications: azithromycin (ZITHROMAX) 250 MG tablet, Take as directed on package labelin g. Two pills by mouth for the first day and then 1 pill daily until done., Disp : 6 Tab, Rfl: 0 Beclomethasone Diprop HFA (QVAR REDIHALER) 40 MCG/ACT AERB, Inhale 1 Puff b y nose two times daily for 10 days. For cough, wheezing or shortness of breath, Disp: 1 Inhaler, Rfl: 0 benzonatate (TESSALON PERLES) 100 mg capsule, Take 1 Cap by mouth 3 times d aily as needed for Cough for up to 10 days., Disp: 30 Cap, Rfl: 0 hydrochlorothiazide (HYDRODIURIL) 25 MG tablet, Take 1 Tab by mouth daily. For blood pressure, Disp: 90 Tab, Rfl: 1 BP 122/78 (BP Location: right arm, Patient Position: Sitting, Cuff Size: large) | Pulse 91 | Resp 16 | Ht 5' 7" (1.702 m) | Wt 247 lb (112 kg) | LMP 2008 | BMI 38.69 kg/m Physical Examination General: Mild distress, mild shakiness HEENT: no sclearl icterus, MMM, no erythema Lungs: clear to ascultation bilaterally, no wheezing or crackles Heart: RRR, no murmurs Abdomen: non-distended, no masses, non-tender Extremities: no lower extremity swelling ASSESSMENT AND PLAN Ms Samuel is a 54 years old female with past medical history of HTN referred t o us for hypoglycemia. #Hypoglycemia -it is unclear why Ms Lizzie has sudden worsening of her hygpoglycemia in the p ast month despite stopping her trulicity, likely multifactorial such as post-pra ndial hypoglycemia vs insulinoma -patient started to have symptoms of hypoglycemia during the visit, mika oscar 53 in clinic while fasting, sent patient for STAT labs, and symptoms improved with juice -will send for hypoglycemic panel, insulin, proinsulin, c-peptide, B-OH, Sulfony luria screen while patient is hypoglycemic -instructed patient to adjust her diet to cut down on simple carbs -referred patient to plan checker -provided patient with glucometer and instructed patient to measure glucose leve ls when symptomatic and send back results. RTC [address] Cortez Gamez MD Internal Medicine, PGY-3 [facility] TRONIC GLUER documented in this encounter Plan of Treatment Care Team Description Date Type Specialty De La CruzJanine MD [address] [place] [address] 10/20/2019 Office Visit Family Medicine Order Schedule Name Type Priority Associated Diagnoses Ordered: 08/24/2019 INSULIN AND C-PEPTIDE, Lab Routine Hypoglycemia SERUM Ordered: 08/24/2019 PROINSULIN Lab Routine Hypoglycemia Ordered: 08/24/2019 SULFONYLUREA HYPOGLYCEMIC Lab Routine Hypoglycemia Ordered: 08/24/2019 HYPOGLYCEMIC Lab Routine Hypoglycemia PNL.,SERUM/PLASMA Ordered: 08/24/2019 BETA-HYDROXBUTYRIC ACID Lab Routine Hypoglycemia Order Schedule Name Type Priority Associated Diagnoses Ordered: 08/24/2019 AMB REF TO GI MACHINE II ENGRAVER Outpatient Routine Hypoglycemia Referral Health Maintenance Due Date Last Done Comments TETANUS SHOT (ADULT) 1980 HEPATITIS C SCREENING 1983 HIV SCREENING 1983 CERVICAL CANCER SCREENING 1986 3 YEAR FOLLOW UP MAMMOGRAM ANNUAL 02/16/2020 02/15/2019, 02/15/2019, 11/12/2016, Additional history exists BMI FOLLOW UP PLAN 02/22/2020 02/21/2019 COLON CANCER SCREENIN03/17/2024 03/17/2019 COLONOSCOPY FLU VACCINE > 6 MONTHS Addressed 03/14/2019 (Declined), 05/08/2015 Overridden with the intention of not completing the topic documented as of this encounter Results Not on filedocumented in this encounter Visit Diagnoses Diagnosis Hypoglycemia - Primary Hypoglycemia, unspecified documented in this encounter Insurance Type Payer Benefit Subscriber ID Effective Phone Address Plan / Dates Group POS [employer] OPEN xxxxxxxxxx 2014-P [address] ACC[address] resent [id number] HMO/POS/EP [place] [employer] [address] documented as of this encounter
--- OUTSIDE RECORDS SUMMARY | 2019-09-03 14:37 | XMS REPORT | Summary of Care ---
Author Author [facility] Organization [facility] Address Unknown Phone Unavailable Care Team Providers Care Civil Celebrant Name Role Phone Janine De La Cruz MD PCP Wolfgang Cortes 51 Reason for Visit * Reason Comments Continuing Care Visit HTN Encounter Details Care Team Description Date Type Department Janine De La Cruz MD [address] [employer] [address] [address] Continuing Care Visit (HTN) 03/14/2019 Office Visit [facility] Family Medicine [facility] Jeremy Perla, [address] [address] Allergies Comments Active Allergy Reactions Severity Noted Date Penicillins 04/25/2012 documented as of this encounter (statuses as of 03/16/2019) Medications End Date Status Medication Sig Dispensed Refills Start Date Active Dulaglutide (TRULICITY) Inject 0.5 mL 4 Pen 4 0.75 MG/0.5ML into the skin 9 SOPNIndications: Abnormal every 7 days. weight gain, Prediabetes, Obesity (BMI 30-39.9) Active hydrochlorothiazide Take 1 Tab by 90 Tab 1 (HYDRODIURIL) 25 MG mouth daily. 9 tabletIndications: HTN, For blood goal below 140/90 pressure Active lisinopril (PRINIVIL, Take 1 Tab by 90 Tab 1 ZESTRIL) 2.5 MG mouth daily. 9 tabletIndications: HTN, For blood goal below 140/90 pressure 03/14/2019 Discontinued hydrochlorothiazide Take 1 Tab by 90 Tab 1 (HYDRODIURIL) 25 MG mouth daily. 9 tabletIndications: HTN, For blood goal below 140/90 pressure 03/14/2019 Discontinued Dulaglutide (TRULICITY) Inject 0.5 mL 4 Pen 1 0.75 MG/0.5ML into the skin 9 SOPNIndications: Abnormal every 7 days. weight gain, Prediabetes, Obesity (BMI 30-39.9) documented as of this encounter (statuses as of 03/16/2019) Active Problems Problem Noted Date Neoplasm of [...] as of this encounter (statuses as of 03/16/2019) Resolved Problems Problem Noted Date Resolved Date Tobacco use disorder 04/25/2012 02/14/2019 Overview: 04/08: Counseled on tobacco cessation, not ready to quit at this time, agrees to think about a quit date documented as of this encounter (statuses as of 03/16/2019) Immunizations Name Administration Dates Next Due Influenza [...] Signs Reading Time Taken Comments Vital Sign 144/90 03/14/2019 3:38 PM CDT Blood Pressure 94 03/14/2019 3:38 PM CDT Pulse 36.4 C (97.6 F) 03/14/2019 3:38 PM CDT Temperature 16 03/14/2019 3:38 PM CDT Respiratory Rate - - Oxygen Saturation - - Inhaled Oxygen Concentration 112.6 kg (248 lb 3.2 oz) 03/14/2019 3:38 PM CDT Weight 170.2 cm (5' 7") 03/14/2019 3:38 PM CDT Height 38.87 03/14/2019 3:38 PM CDT Body Mass Index documented in this encounter Patient Instructions * Patient Instructions* Janine De La Cruz MD - 03/14/2019 3:30 PM CDT Blood pressure Hydrochlorothiazide 25 mg daily Add on lisinopril 2.5 mg daily Goal BP is LESS than 140/90 BP Readings from Last 3 Encounters: 03/14/19 144/90 02/21/19 147/88 02/15/19 155/88 Weight Continue Trulicity 0.75 mg ONCE WEEKLY documented in this encounter Progress Notes * Janine De La Cruz MD - 03/14/2019 3:30 PM CDT Reason for visit: f/u on Hypertension and Hyperlipidemia - Chief Complaint Patient presents with Continuing Care Visit HTN I have reviewed the patient assessment CCV questionnaire completed via get2playt o r transcribed from the written form. YES HTN Hydrochlorothiazide 25 mg daily Tolerating well Wt, BMI 38 Started Trulicity 0.75 mg daily Tolerating well Home scale wt 243 lbs Pt mentions her hand tremors have improved since starting Trulicity HYPERTENSION BP Readings from Last 3 Encounters: 03/14/19 144/90 02/21/19 147/88 02/15/19 155/88 Patient's goal met?===== BP <140/90 NO JNC [...] Last attempt to quit: 06/28/2016 Years since quittin.7 Smokeless Tobacco Never Used #3 - Hypertension (>140/90 or treated) Yes BP Readings from Last 3 Encounters: 03/14/19 144/90 02/21/19 147/88 02/15/19 155/88 #4 - Age (Men>45, Women>55) No 54 y.o. years old today #5 - Low HDL No Lab Results Component Value Date HDL 41 02/13/2019 1 # of Risk Factors Most recent lipid panel- Lab Results Component Value Date CHOL 203 (H) 02/13/2019 HDL 41 02/13/2019 LDLCALC 126 (H) 02/13/2019 TRIG 181 (H) 02/13/2019 CHOLHDL 5.0 04/29/2015 Adherence HTN meds taken regularly YES Lipids [...] history, pr oblem list. Physical Exam BP 144/90 | Pulse 94 | Temp 97.6 F (36.4 C) (Oral) | Resp 16 | Ht 5' 7" (1.702 m) | Wt 248 lb 3.2 oz (112.6 kg) | LMP 03/12/2009 | BMI 38.87 kg/m Body mass index is 38.87 kg/m. - General : 54 y.o. female well developed, well nourished and in no acute distre ss HEENT: normocephalic, atraumatic. PER, mucus membranes moist Neck: supple Lungs: Non labored breathing Heart: Reg rate Musculoskeletal: Gait wnl Pulses: 2+ and symmetric Ext: no pedal edema, no clubbing or cyanosis Neuro: Grossly normal, non-focal Assessment / Plan HYPERTENSION Controlled? - NO HYPERLIPIDEMIA Controlled? - NO ASCVD 10 yr risk 4.2% Blood pressure Hydrochlorothiazide 25 mg daily Add on lisinopril 2.5 mg daily Keep HBP monitoring Weight Continue Trulicity 0.75 mg ONCE WEEKLY 1. HTN, goal below 140/90 - hydrochlorothiazide (HYDRODIURIL) 25 MG tablet; Take 1 Tab by mouth daily. For blood pressure Dispense: 90 Tab; Refill: 1 - lisinopril (PRINIVIL, ZESTRIL) 2.5 MG tablet; Take 1 Tab by mouth daily. For b lood pressure Dispense: 90 Tab; Refill: 1 2. Dyslipidemia ASCVD 10-yr <5% Lifestyle measures discussed with patient for healthy wt loss, blood pressure, b lood glucose and lipid control including dietary modification and regular physic al activity 2. Prediabetes 3. Obesity (BMI 30-39.9) 4. Abnormal weight gain - Dulaglutide (TRULICITY) 0.75 MG/0.5ML SOPN; Inject 0.5 mL into the skin every 7 days. Dispense: 4 Pen; Refill: 4 Discussed self-monitoring YES Gave Pt Self-Management Educational Materials YES Goal documented on AVS and Overview note YES RTC 3 mos or sooner prn Janine De La Cruz MD [facility] documented in this encounter Plan of Treatment Care Team Description Date Type Specialty Kyaw Logan MD [address] [place], [place] [phone] 03/17/2019 Appointment Gastroenterology Bill Sood MD [address] [place], [place] [id number] 05/17/2019 Office Visit Hematology and Oncology Janine De La Cruz MD [address] [facility] [address] [place] [address] [phone] 05/31/2019 Office Visit Family Medicine Health Maintenance Due Date Last Done Comments COLON CANCER SCREENIN1965 COLONOSCOPY TETANUS SHOT (ADULT) 1980 HEPATITIS C SCREENING 1983 HIV SCREENING 1983 CERVICAL CANCER SCREENING 1986 3 YEAR FOLLOW UP MAMMOGRAM ANNUAL 02/16/2020 02/15/2019, 02/15/2019, 11/12/2016, Additional history exists BMI FOLLOW UP PLAN 02/22/2020 02/21/2019 FLU VACCINE > 6 MONTHS Addressed 03/14/2019 (Declined), 05/08/2015 Overridden with the intention of not completing the topic documented as of this encounter Results Not on filedocumented in this encounter Visit Diagnoses Diagnosis HTN, goal below 140/90 - Primary Unspecified essential hypertension Dyslipidemia Other and unspecified hyperlipidemia Prediabetes Other abnormal glucose Obesity (BMI 30-39.9) Obesity, unspecified Abnormal weight gain documented in this encounter Insurance Type Payer Benefit Subscriber ID Effective Phone Address Plan / Dates Group POS [employer] OPEN xxxxxxxxxx 2014-P [address] ACC[address] resent [id number] HMO/POS/[place] [employer] [address] documented as of this encounter
--- OUTSIDE RECORDS SUMMARY | 2019-09-03 14:37 | XMS REPORT | Summary of Care ---
Author Author [facility] Organization [facility] Address Unknown Phone Unavailable Care Team Providers Care Cardiovascular Invasive Specialist Name Role Phone Janine De La Cruz MD PCP Wolfgang Cortes 51 Miranda Echevarria MA 51 Unavailable Reason for Referral * Consult, Test & Treat (Urgent) Referred By Contact Referred To Contact Status Reason Specialty Diagnoses / Procedures Janine De La Cruz MD [address] [facility] [address] [place] [address] [facility] Endocrinology [address] [facility] 8th Floor; [address] [place] [address] Pending Consult, Test, and Endocrinology Diagnoses Treat Hypoglycemia Hypoglycemia P rocedures [place] OFFICE OUTPATIENT NEW 30 MINUTES Reason for Visit * Reason Comments Continuing Care Visit HTN Cold Exposure x 5 days Encounter Details Care Team Description Date Type Department Janine De La Cruz MD [address] [place] [address] Continuing Care Visit (HTN ); Cold Exposure (x 5 days ) 08/18/2019 Office Visit [facility] Family Medicine [address] [place] [address], [facility] [address] [place] [address] Allergies Comments Active Allergy Reactions Severity Noted Date Penicillins 04/25/2012 documented as of this encounter (statuses as of 08/20/2019) Medications End Date Status Medication Sig Dispensed [...] organism Cough for up to 10 days. 08/20/2019 Discontinued (Side effects) Dulaglutide (TRULICITY) Inject 0.5 mL 4 Pen 4 0.75 MG/0.5ML into the skin 9 SOPNIndications: Abnormal every 7 days. weight gain, Prediabetes, Obesity (BMI 30-39.9) documented as of this encounter (statuses as of 08/20/2019) Active Problems Problem Noted Date Neoplasm of [...] as of this encounter (statuses as of 08/20/2019) Resolved Problems Problem Noted Date Resolved Date Tobacco use disorder 04/25/2012 02/14/2019 Overview: 04/08: Counseled on tobacco cessation, not ready to quit at this time, agrees to think about a quit date documented as of this encounter (statuses as of 08/20/2019) Immunizations Name Administration Dates Next Due Influenza [...] Signs Reading Time Taken Comments Vital Sign 152/88 08/18/2019 8:23 AM ACT ENGLISH [employer] Blood Pressure 99 08/18/2019 8:23 AM ACT ENGLISH TUTOR Pulse 36.8 C (98.2 F) 08/18/2019 8:23 AM ACT ENGLISH TUTOR Temperature 15 08/18/2019 8:23 AM ACT ENGLISH TUTOR Respiratory Rate - - Oxygen Saturation - - Inhaled Oxygen Concentration 111.1 kg (245 lb) 08/18/2019 8:23 AM ACT ENGLISH TUTOR Weight 170.2 cm (5' 7") 08/18/2019 8:23 AM ACT ENGLISH TUTOR Height 38.37 08/18/2019 8:23 AM ACT ENGLISH TUTOR Body Mass Index documented in this encounter Patient Instructions * Patient Instructions* Janine De La Cruz MD - 08/18/2019 8:10 AM ACT ENGLISH T[employer]OR Asthma vs Reactive Airway Disease There two problems in the lungs at this time: 1--Breathing tubes are tight Continue Albuterol inhaler 1-2 separate puffs every 4-6 hours as needed for whee zing, cough, or shortness of breath. Also known as: Proventil (yellow), Pro-Air (red) Ventolin (blue) TIP: Use this every 4-6 hours while awake for the next 2-3 days TIP: Use this inhaler approximately 30 minutes before physical activity/exercis e 2--Inflammation inside the lungs Start QVAR 1 puff every 12 hours. Rinse your mouth thoroughly after using this inhaler. Be sure to use this entire inhaler To further help the cough: Try prescription Tessalon pearles, take 1 capsule three times a day for cough Please return to [facility] clinic if you don't improve in the next 2 weeks Take Janine charles MD Blood pressure Hydrochlorothiazide 25 mg daily Lisinopril 2.5 mg daily Get labs done fasting ENGLISH TUTOR documented in this encounter Progress Notes * Janine De La Cruz MD - 08/18/2019 8:10 AM ACT ENGLISH TUTOR Reason for visit: f/u on HTN - Chief Complaint Patient presents with Continuing Care Visit HTN Cold Exposure x 5 days I have reviewed the patient assessment CCV questionnaire completed via [employer] o r transcribed from the written form. YES Last visit with me 02/2019 UR Sxs x 4 days since Wed Cough occ prod non bloody Runny nose clear Subj fevers Sweats No sore throat SOB Blood pressure Hydrochlorothiazide 25 mg daily Stopped Lisinopril 2.5 mg after a few weeks and Trulicity d/t a general concern about meds causing low BG Hypoglycemia found on biometric screening at work Fasting labs done reportedly showed FBG of 42 Has had h/o hypoglycemia in the past that has never been evaluated She curr denies dizziness, shakiness, weakness No CP, palps, SOB, leg swelling H/o pre-DM Last A1c wnl Component Latest Ref Rng & Units 04/25/2012 04/29/2015 10/29/2016 02/13/2019 HEMOGLOBIN A1C 4.8 - 5.6 % 5.9 (H) 5.9 (H) 5.9 (H) 5.3 Component Latest Ref Rng & Units 04/25/2012 04/29/2015 10/29/2016 02/13/2019 GLUCOSE 65 - 99 mg/dL 65 74 82 60 (L) HYPERTENSION BP Readings from Last 3 Encounters: 08/18/19 152/88 03/14/19 144/90 02/21/19 147/88 Patient's goal met?===== BP <140/90 NO JNC VII - goal <140/90 - <130/80 for patients with diabetes or chronic kidney disease JNC VII - stage 1 (140-159/90-99) thiazide diuretic for most,or ACEi,ARB, BB, CCB stage 2 (>160/100) 2-drug combination - compelling conditions indicate specific Drugs Adherence HTN meds NO, as above compliance Target Organ Damage Lab Lab Results Component Value Date CREATININE 0.78 02/13/2019 - Other ASCVD risk factors/Labs Social History Tobacco Use Smoking Status Former Smoker Packs/day: 1.00 Years: 30.00 Pack years: 30.00 Last attempt to quit: 06/28/2016 Years since quittin.1 Smokeless Tobacco Never Used Lab Results Component Value Date CHOL 203 (H) 02/13/2019 HDL 41 02/13/2019 LDLCALC 126 (H) 02/13/2019 TRIG 181 (H) 02/13/2019 Lab Results Component Value Date GLUCOSE 60 (L) 02/13/2019 Lab Results Component Value Date HGBA1C 5.3 02/13/2019 Immunizations - Immunization History Administered Date(s) Administered Influenza Quad-PF 05/08/2015 Pneumococcal Polysaccharide 05/08/2015 Reviewed vital signs, allergies, medications, past and family/social history, pr oblem list. Physical Exam - BP 152/88 | Pulse 99 | Temp 98.2 F (36.8 C) (Oral) | Resp 15 | Ht 5' 7" (1.702 m) | Wt 245 lb (111.1 kg) | LMP 03/12/2009 | BMI 38.37 kg/m Body m ass index is 38.37 kg/m. General : 54 y.o. female well developed, well nourished and in no acute distre ss. Pt was coughing intermittently throughout exam. HEENT: normocephalic, atraumatic. PERRL, mucus membranes moist Neck: supple, s ymmetrical, trachea midline, no adenopathy, thyroid normal, No carotid bruit Lungs: Clear to auscultation bilaterally and no wheezes, rubs or rales Heart: RRR, S1, S2 normal, no murmur, click, rub or gallop Abdomen: Soft, non-tender. Bowel sounds normal. No masses, no organomegaly Musculoskeletal: symmetrical with no deformity, with normal posture Pulses: 2+ and symmetric Ext: no pedal edema, no clubbing or cyanosis Neuro: Grossly normal, non-focal Assessment / Plan HYPERTENSION Controlled ? NO 1. HTN, goal below 140/90 - HEMOGLOBIN A1C 2. Hyperlipidemia, unspecified hyperlipidemia type - LIPID PANEL 3. Hypoglycemia - AMB REF TO ENDOCRINOLOGY [facility] - COMPREHENSIVE METABOLIC PANEL - INSULIN AND C-PEPTIDE, SERUM Pt advised on hypoglycemia precautions, need for further eval She eats regularly and takes measures for hypoglycemic Sxs 4. Acute bronchitis, unspecified organism Possibly viral - viral etiology of symptoms reviewed with pt; no need for antibi otics at this time. Pt informed to expect symptoms to last 7-10 days. Supportive measures as per AVS However, if Sxs persist/worsen, incl cough and T >100.4 F, can consider secondary bacterial infection and Abx Rx given in this case - Beclomethasone Diprop HFA (QVAR REDIHALER) 40 MCG/ACT AERB; Inhale 1 Puff by n ose two times daily for 10 days. For cough, wheezing or shortness of breath Dis pense: 1 Inhaler; Refill: 0 - azithromycin (ZITHROMAX) 250 MG tablet; Take as directed on package labeling. Two pills by mouth for the first day and then 1 pill daily until done. Dispens e: 6 Tab; Refill: 0 - benzonatate (TESSALON PERLES) 100 mg capsule; Take 1 Cap by mouth 3 times prem y as needed for Cough for up to 10 days. Dispense: 30 Cap; Refill: 0 Discussed self-monitoring YES Gave Pt Self-Management Educational Materials YES Goal documented on AVS and Overview note YES RTC pending labs Janine De La Cruz MD [facility] Family Medicine ENGLISH TUTOR documented in this encounter Plan of Treatment Care Team Description Date Type Specialty Pati Toro MD [address] [facility] [address] [place] [address] 10/19/2019 Office Visit Endocrinology Janine De La Cruz MD [address] [facility] [address] [place] [address] 10/20/2019 Office Visit Family Medicine Order Schedule Name Type Priority Associated Diagnoses Ordered: 08/18/2019 INSULIN AND C-PEPTIDE, Lab Routine Hypoglycemia SERUM Order Schedule Name Type Priority Associated Diagnoses Ordered: 08/18/2019 AMB REF TO ENDOCRINOLOGY Outpatient Routine Hypoglycemia [facility] Due Date Last Done Comments TETANUS SHOT [...] the topic documented as of this encounter Procedures Comments Procedure Name Priority Date/Time Associated Diagnosis INSULIN AND C-PEPTIDE, 08/18/2019 SERUM 9:47 AM ACT ENGLISH TUTOR HEMOGLOBIN A1C Routine 08/18/2019 HTN, goal below 140/90 9:47 AM ACT ENGLISH TUTOR LIPID PANEL Routine 08/18/2019 Hyperlipidemia, 9:47 AM ACT ENGLISH TUTOR unspecified hyperlipidemia type COMPREHENSIVE METABOLIC Routine 08/18/2019 Hypoglycemia PANEL 9:47 AM ACT ENGLISH TUTOR documented in this encounter Results * INSULIN AND C-PEPTIDE, SERUM (08/18/2019 9:47 AM ACT ENGLISH TUTOR) INSULIN LEVEL 25.7 (H) 2.6 - 24.9 uIU/mL [facility] C-PEPTIDE 4.3Comment: C-Peptide 1.1 - 4.4 ng/mL [facility] reference interval is for fasting patients. Specimen Narrative Performed At Performed at: - [facility] [address] [place], [place] [id number] [place] Tier: Jordy Sanchez MD, Phone: [phone] Performing Organization Address City/State/Zipcode Phone Number [facility] [address] [address] * HEMOGLOBIN A1C (08/18/2019 9:47 AM ACT ENGLISH TUTOR) HEMOGLOBIN A1C 5.1 4.8 - 5.6 % [facility] Comment: Prediabetes: 5.7 - 6.4 Diabetes: >6.4 Glycemic control for adults with diabetes: <7.0 Specimen Blood Narrative Performed At Performed at: [address] [id number] [place] Tier: Jordy Sanchez MD, Phone: [phone] Performing Organization Address [facility] Phone Number [facility] [address] [address] * LIPID PANEL (08/18/2019 9:47 AM ACT ENGLISH TUTOR) CHOLESTEROL 199 100 - 199 mg/dL [facility] TRIGLYCERIDES 139 0 - 149 mg/dL [facility] HDL 36 (L) >39 mg/dL [facility] VLDL 28 5 - 40 mg/dL [facility] CHOLESTEROL CALC LDL CHOLESTEROL 135 (H) 0 - 99 mg/dL [facility] CALCULATED Specimen Blood Narrative Performed At Performed at: [facility] [id number] [place] [employer]: Jordy Sanchez MD, Phone: [phone] Performing Organization Address [facility] Phone Number [facility] [address] [address] * COMPREHENSIVE METABOLIC PANEL (08/18/2019 9:47 AM ACT ENGLISH TUTOR) GLUCOSE 35 (<)Comment: Verified by 65 - 99 mg/dL [facility] repeat analysis BLOOD UREA 18 6 - 24 mg/dL [facility] NITROGEN CREATININE 0.69 0.57 - 1.00 mg/dL [facility] EGFR(C)NONAFRIC 99 >59 mL/min/1.73 [facility] SARITA EGFR(C)AFRICANA 114 >59 mL/min/1.73 [facility] JOHNNY BUN/CREAT RATIO 26 (H) 9 - 23 [facility] SODIUM 142 134 - 144 mmol/L [facility] POTASSIUM 5.4 (H) 3.5 - 5.2 mmol/L [facility] CHLORIDE 101 96 - 106 mmol/L [facility] CO2 25 20 - 29 mmol/L [facility] CALCIUM 9.7 8.7 - 10.2 mg/dL [facility] PROTEIN TOTAL 7.1 6.0 - 8.5 g/dL [facility] ALBUMIN 4.7Comment: 3.8 - 4.9 g/dL [facility] Please note reference interval change GLOBULINS, 2.4 1.5 - 4.5 g/dL [facility] SERUM, TOTAL A/G RATIO 2.0 1.2 - 2.2 [facility] BILIRUBIN TOTAL <0.2 0.0 - 1.2 mg/dL [facility] ALKALINE 81 39 - 117 IU/L [facility] PHOSPHATASE AST (SGOT) 22 0 - 40 IU/L [facility] ALT (SGPT) 30 0 - 32 IU/L [facility] Specimen Blood Narrative Performed At Performed at: 01 - [facility] [address] [place], [place] [id number] [place] [employer]: Jordy Sanchez MD, Phone: [phone] Specimen Comment: Test(s) Glucose called to Dr Hough on 08/19/2019 at 05:20 EST Performing Organization Address City/[facility] Phone Number [facility] [address] [facility] [address] [place] [address] documented in this encounter Visit Diagnoses Diagnosis HTN, goal below 140/90 - Primary Unspecified essential hypertension Hyperlipidemia, unspecified hyperlipidemia type Hypoglycemia Hypoglycemia, unspecified Acute bronchitis, unspecified organism documented in this encounter Insurance Type Payer Benefit Subscriber ID Effective Phone Address Plan / Dates Group POS [employer] OPEN xxxxxxxxxx 2014-P [id number] HMO/[place] [employer] [id number] documented as of this encounter
[2019-09-03 15:31] LABS: BASOPHILS # (AUTO) 0.1 (0.0-0.1); BASOPHILS % 0.4 % (0.0-1.0); EOSINOPHILS # (AUTO) 0.1 (0.0-0.4); EOSINOPHILS % 0.8 % (0.0-6.0); HEMATOCRIT 40.7 % (34.2-44.1); HEMOGLOBIN 13.1 g/dL (12.0-16.0); LYMPHOCYTES # (AUTO) 1.7 (1.0-3.2); LYMPHOCYTES % 9.8 % (18.0-39.1); MEAN CORPUSCULAR HEMOGLOBIN 28.1 pg (28-32); MEAN CORPUSCULAR HGB CONC 32.2 g/dL (31-35); MEAN CORPUSCULAR VOLUME 87.3 fL (81-99); MONOCYTES # (AUTO) 0.8 (0.2-0.8); MONOCYTES % 4.4 % (4.4-11.3); NEUTROPHILS # (AUTO) 14.4 (2.1-6.9); NEUTROPHILS % 83.8 % (38.7-80.0); PLATELET COUNT 500 x10e3/uL (140-360); RED BLOOD COUNT 4.66 x10e6/uL (3.6-5.1); RED CELL DISTRIBUTION WIDTH 14.6 % (11.7-14.4)
[2019-09-03 15:36] LABS: CLARITY,URINE SL CLOUDY (CLEAR); COLOR,URINE YELLOW (YELLOW); LEUKOCYTE ESTERASE ,URINE NEGATIVE (NEGATIVE); NITRITE,URINE NEGATIVE (NEGATIVE)
[2019-09-03 15:37] LABS: BILIRUBIN,URINE NEGATIVE (NEGATIVE); KETONES,URINE TRACE (NEGATIVE); PROTEIN,URINE DIPSTICK NEGATIVE (NEGATIVE); URINE UROBILINOGEN 0.2 mg/dL (0.2 - 1)
[2019-09-03 15:48] LABS: BACTERIA,URINE FEW /HPF; EPITHELIAL CELLS,URINE FEW /LPF; RBC,URINE 0-5 /HPF (0-5); WBC,URINE (MAN) 0-5 /HPF (0-5)
[2019-09-03 15:54] LABS: ALANINE AMINOTRANSFERASE 24 IU/L (0-55); ALBUMIN 4.1 g/dL (3.5-5.0); ALBUMIN/GLOBULIN RATIO 1.2 (0.8-2.0); ALKALINE PHOSPHATASE 95 IU/L (40-150); ANION GAP 13.6 mmol/L (8-16); BLOOD UREA NITROGEN 18 mg/dL (7-26); BUN/CREATININE RATIO 23 (6-25); CALCIUM 9.5 mg/dL (8.4-10.2); CARBON DIOXIDE 27 mmol/L (22-29); CHLORIDE 105 mmol/L (98-107); CREATINE KINASE 315 IU/L (29-168); EST GLOMERULAR FILTRATION RATE > 60 ML/MIN (60-); GLUCOSE 99 mg/dL (74-118); POTASSIUM 4.6 mmol/L (3.5-5.1); SODIUM 141 mmol/L (136-145)
--- NOTE | 2019-09-03 16:18 | NUR ---
PT DECLINED TO HAVE CT HEAD AND CXRAY PERFORMED. [employer] PLAY[employer] AT BEDSIDE TALKING WITH PT
[2019-09-03 16:42] VITALS: BP 165/82
== END 2019-09-03 16:43 | disposition home or self-care (01) ==
LOC: ER 14:34
DX: R53.1 Weakness (principal); E16.2 Hypoglycemia, unspecified
CPT/HCPCS: 36415; 80053; 81001; 82550; 82553; 82948; 83690; 84484; 85025; 93005; 99283